=== PATIENT | female | born 1930 | race African-American/Black ===

== ENCOUNTER 2016-09-14 11:45 | Observation (INO) | payer BC, MEDICAID ==
[~2016-09-14] VITALS: Ht 157.5 cm; Wt 45.4 kg
[~2016-09-14 11:45] MED LIST: AMLO10TA80 PO; ASPI-1159 PO; CLON0.2T PO; CLOP75TA2 PO; DOCU-150 PO; FERR325T30; FOLI-43 PO; ISOS120T9 PO; QUET25TA PO; TIMO15DR12 EACHEYE; TRAV2.5D EACHEYE
[2016-09-14 12:31] LABS: BASOPHILS % 0.7 % (0.0-2.0); EOSINOPHILS % 2.8 % (0.0-5.0); HEMATOCRIT. 34.3 % (36.0-48.0); HEMOGLOBIN. 11.4 g/dL (12.0-16.0); LYMPHOCYTES % 45.7 % (20.0-50.0); MEAN CORPUSCULAR HEMOGLOBIN 29.8 pg (28.0-32.0); MEAN CORPUSCULAR VOLUME 89.4 fL (81.0-99.0); MEAN PLATELET VOLUME 6.8 fl (7.4-10.4); NEUTROPHILS % 39.8 % (40.0-76.0); PLATELET 237 x1000/uL (130-400); RED BLOOD CELL COUNT 3.83 mill/uL (4.2-5.4); RED CELL DISTRIBUTION WIDTH 13.5 % (11.6-14.6)
[2016-09-14 12:41] LABS: PARTIAL THROMBOPLASTIN TIME 25.5 sec (24.0-34.0)
[2016-09-14 12:49] LABS: CARBON DIOXIDE 33 mEq/L (21-32); CHLORIDE 104 mEq/L (98-107); TROPONIN I < 0.02 ng/mL (0.00-0.04)
[2016-09-14] MEDS ORDERED: ALBUTEROL (0.083%) 2.5MG/3ML NEB HHN STA (12:58)
[2016-09-14] MEDS ORDERED: IPRATROPIUM BROMIDE (0.02%) 0.5MG/2.5ML NEB HHN STA (12:58)
[2016-09-14] MEDS ORDERED: METHYLPREDNISOLONE SOD SUCC 125 MG/2 ML VIAL IV STA (12:58)
[2016-09-14] MEDS ORDERED: IPRATROPIUM/ALBUTEROL 0.5-3(2.5)MG/3ML NEB INH PRN (13:30)
[2016-09-14] MEDS ORDERED: HYDROCODONE/ACETAMINOPHEN 5/325MG TABLET PO PRN (13:30)
[2016-09-14] MEDS ORDERED: ACETAMINOPHEN 325MG TABLET PO PRN (13:30)
[2016-09-14] MEDS ORDERED: SODIUM CHLORIDE 0.9% 500 ML IV ONE (13:45)
[2016-09-14 15:47] LABS: CHLORIDE 104 mEq/L (98-107)
[2016-09-14 15:55] LABS: CARBON DIOXIDE 28 mEq/L (21-32); CREATINE KINASE 66 IU/L (26-192); TROPONIN I < 0.02 ng/mL (0.00-0.04)
[2016-09-14 20:00] VITALS: BP 181/80
[2016-09-14] MEDS ORDERED: LEVOFLOXACIN 500MG PREMIX 100 ML IV SCH (21:00)
[2016-09-14] MEDS: ENOXAPARIN 40MG/0.4ML SYR SUBCUT SCH (21:29)
[2016-09-14] MEDS: CLONIDINE 0.1MG TABLET PO PRN (21:31)
[2016-09-14 21:59] VITALS: BP 181/80
[2016-09-14] MEDS ORDERED: MOBI7 PO (22:26)
[2016-09-14] MEDS ORDERED: SPIR25TA4 PO (22:26)
[2016-09-14] MEDS ORDERED: MEMA10TA11 PO (22:26)
[2016-09-14] MEDS ORDERED: LATA2.5D2 EACHEYE (22:26)
[2016-09-15] VITALS (8 sets, daily range): BP systolic 136–212; BP diastolic 69–97
[2016-09-15 00:08] LABS: CREATINE KINASE 64 IU/L (26-192); TROPONIN I < 0.02 ng/mL (0.00-0.04)
[2016-09-15] MEDS: CLONIDINE 0.1MG TABLET PO PRN (04:44)
[2016-09-15 06:26] LABS: BASOPHILS % 0.1 % (0.0-2.0); LYMPHOCYTES % 18.2 % (20.0-50.0); MEAN CORPUSCULAR HEMOGLOBIN 30.6 pg (28.0-32.0); MEAN CORPUSCULAR VOLUME 89.1 fL (81.0-99.0); MONOCYTES % 9.6 % (2.0-8.0); NEUTROPHILS % 72.1 % (40.0-76.0); PLATELET 219 x1000/uL (130-400); RED BLOOD CELL COUNT 3.25 mill/uL (4.2-5.4)
[2016-09-15 08:45] LABS: T4 FREE 1.19 ng/dL (0.76-1.46)
[2016-09-15] MEDS: CLOPIDOGREL 75MG TABLET PO SCH (08:52)
[2016-09-15] MEDS: ASPIRIN 81MG EC TABLET PO SCH (08:52)
[2016-09-15] MEDS: ISOSORBIDE MONONITRATE 120MG TABLET SR 24HR PO SCH (08:52)
[2016-09-15] MEDS: AMLODIPINE 10MG TABLET PO SCH (08:53)
[2016-09-15] MEDS: MEMANTINE HCL 10MG TABLET PO SCH (08:53)
[2016-09-15] MEDS: TIMOLOL MALEATE 0.5% OPHTH DROPS 5ML EACHEYE SCH (09:49)
[2016-09-15] MEDS: DOCUSATE SODIUM 100MG CAPSULE PO SCH (09:52)
[2016-09-15 11:09] LABS: CLARITY URINE CLOUDY (CLEAR); COLOR URINE YELLOW (YELLOW); GLUCOSE URINE TRACE (NEGATIVE); KETONES URINE NEGATIVE (NEGATIVE); LEUKOCYTE ESTERASE URINE NEGATIVE (NEGATIVE); NITRITE URINE NEGATIVE (NEGATIVE); OCCULT BLOOD URINE NEGATIVE (NEGATIVE); PH URINE 6.5 (4.5-8.0); PROTEIN URINE TRACE (NEGATIVE); SPECIFIC GRAVITY URINE 1.024 (1.005-1.030); UROBILINOGEN URINE 0.2 E.U./dL (0.2-1.0)
[2016-09-15] MEDS ORDERED: METHYLPREDNISOLONE SOD SUCC 40 MG/ML VIAL IV NR (11:15)
[2016-09-15] MEDS ORDERED: NA PHOS,M-B/NA PHOS,DI-BA ENEMA 118ML PR NR (11:15)
[2016-09-15] MEDS: HYDRALAZINE HCL 50MG TABLET PO SCH ×2 (16:38→21:10)
[2016-09-15] MEDS ORDERED: LATANOPROST 0.005% OPHTH DROPS 2.5ML EACHEYE SCH ×2 (17:00→21:00)
[2016-09-15] MEDS ORDERED: LACTULOSE 20G/30ML UDC PO PRN (21:00)
[2016-09-15] MEDS ORDERED: LEVOFLOXACIN 250MG PREMIX 50 ML IV SCH (21:00)
[2016-09-15] MEDS ORDERED: QUETIAPINE FUMARATE 25MG TABLET PO SCH (21:00)
[2016-09-15] MEDS: ENOXAPARIN 40MG/0.4ML SYR SUBCUT SCH (21:09)
[2016-09-16] VITALS: BP 179/79
[2016-09-16] MEDS: CLONIDINE 0.1MG TABLET PO PRN (00:46)
[2016-09-16 01:00] VITALS: BP 155/69
[2016-09-16 04:00] VITALS: BP 180/80
[2016-09-16] MEDS: HYDRALAZINE HCL 50MG TABLET PO SCH (05:22)
[2016-09-16 07:52] VITALS: BP 164/80
[2016-09-16] MEDS: DOCUSATE SODIUM 100MG CAPSULE PO SCH (08:41)
[2016-09-16] MEDS: ASPIRIN 81MG EC TABLET PO SCH (08:41)
[2016-09-16] MEDS: AMLODIPINE 10MG TABLET PO SCH (08:42)
[2016-09-16] MEDS: ISOSORBIDE MONONITRATE 120MG TABLET SR 24HR PO SCH (08:42)
[2016-09-16] MEDS: MEMANTINE HCL 10MG TABLET PO SCH (08:42)
[2016-09-16] MEDS: CLOPIDOGREL 75MG TABLET PO SCH (08:42)
[2016-09-16] MEDS: TIMOLOL MALEATE 0.5% OPHTH DROPS 5ML EACHEYE SCH (08:43)
[2016-09-16 11:58] VITALS: BP 115/55
[2016-09-16 12:14] VITALS: BP 115/55
== END 2016-09-16 15:00 | disposition home or self-care (01) ==
LOC: ER 11:52 → INTOOBSV 12:59 → 6WST 12:59 → EDBEDREQ 13:02 → ENRESERV 16:42
PROVIDERS: ADMIT Internal Medicine; ATTEND Internal Medicine
DX: J44.1 Chronic obstructive pulmonary disease with (acute) exacerbation (principal); I10 Essential (primary) hypertension; I25.10 Atherosclerotic heart disease of native coronary artery without angina pectoris; K59.00 Constipation, unspecified; Z86.73 Personal history of transient ischemic attack (TIA), and cerebral infarction without residual deficits
CPT/HCPCS: 36415; 71010; 74000; 74176; 80048; 80053; 80061; 81001; 82550; 83605; 83690; 83880; 84439; 84443; 84484; 85025; 85610; 85730; 87040; 87086; 93005; 94640; 96365; 96366; 96372; 96375; 96376; 97162; 99285; G0378; J1650; J1956; J2920; J2930; J7040; J7050; J7611; 96374